=== PATIENT | female | born 1975 | race Caucasian/White ===

== ENCOUNTER 2016-11-22 05:27 | Day surgery (SDC) | payer MEDICARE ==
[2016-11-21 17:11] LABS: BASOPHILS 0.2 % (0-2); EOSINOPHILS 0 % (0-7); HEMATOCRIT 42.3 % (36.0-48.0); HEMOGLOBIN 14.2 g/dL (12-16); IMMATURE GRANULOCYTES 0.6 % (0-5); LYMPHOCYTES 23.3 % (15-50); MCH 32.2 pg (26.0-34.0); MCHC 33.6 g/dL (31.0-37.0); MCV 95.9 fL (80.0-100.0); MEAN PLATELET VOLUME 9.4 fL (7.4-10.4); MONOCYTES 5.8 % (2-11); NEUTROPHILS 70.1 % (40-80); PLATELET COUNT 299 10x3/uL (130-400); RBC 4.41 10x6/uL (4.00-5.40); RDW 13.8 % (11.5-14.5); WBC 12.6 10x3/uL (4.8-10.8)
[2016-11-21 18:15] LABS: APPEARANCE CLEAR (CLEAR); BILIRUBIN NEGATIVE (NEGATIVE); COLOR YELLOW (YELLOW); GLUCOSE NEGATIVE (NEGATIVE); KETONE NEGATIVE (NEGATIVE); LEUKOCYTE ESTERASE NEGATIVE (NEGATIVE); NITRITE NEGATIVE (NEGATIVE); PROTEIN NEGATIVE (NEGATIVE); SPECIFIC GRAVITY 1.025 (1.005-1.020); UROBILINOGEN NORMAL (NORMAL)
[2016-11-21 18:41] LABS: CALC OSMOLALITY 275 mosm/kg (275-300); CALCIUM 8.8 mg/dL (8.5-10.1); CARBON DIOXIDE 24.9 mmol/L (21.0-32.0); CHLORIDE - SERUM 104 mmol/L (98-107); CREATININE - SERUM 0.8 mg/dL (0.6-1.3); GLUCOSE 83 mg/dL (74-106); POTASSIUM - SERUM 3.7 mmol/L (3.5-5.1); SODIUM 140 mmol/L (136-145); UREA NITROGEN 7 mg/dL (7-18); eGFR NON AFRICAN AMERICAN 84 mL/min (90-120)
[~2016-11-22] VITALS: Ht 163.8 cm; Wt 77.3 kg
[~2016-11-22 05:27] MED LIST: BELSOMRA20 MG PO; CATAPRES0.1 MG PO; CONTRAVE PO; OMEPRAZOLE40 MG PO; SEROQUEL400 MG PO; VALIUM10 MG PO
[2016-11-22 10:02] VITALS: BP 106/69; BMI 28.8
--- NOTE | 2016-11-22 17:48 | NUR ---
NOTIFIED DR CRAIG OF CONTINUED PAIN AFTER EXTRA MEDICATION GIVEN PER ANESTHESIA. NEW ORDERS NOTED. IV VALIUM GIVEN, SEEMS TO BE HELPIMG.
[2016-11-22 18:10] VITALS: BP 115/73
--- NOTE | 2016-11-22 19:51 | NUR ---
RECIEVED FROM AT 181.PATIENT IS AWAKE,ALERT.AMBULATING IN ROOM AT THIS TIME. IV INTACT TO RIGHT FOREARM. INCISION TO LOWER BACK WIHTOUT DRAINAGE OR REDNESS NOTED. AT BEDSIDE,
[2016-11-22 20:00] VITALS: BP 122/70
[2016-11-23] VITALS: BP 129/72
[2016-11-23 00:29] VITALS: BP 122/76; Ht 163.8 cm; Wt 77.3 kg
--- NOTE | 2016-11-23 02:23 | NUR ---
RESTING QUIETLY. NO DISTRESS NOTED. CL IN REACH. REMAINS AT BEDSIDE.
[2016-11-23 04:00] VITALS: BP 90/49
[2016-11-23 04:07] VITALS: BP 128/72
--- NOTE | 2016-11-23 04:55 | NUR ---
UP TO BR WIHT ASSIST. VOIDING WITHOUT DIFFICULTY. NO COCMPLAINTS VOICED. CL IN REACH,. REMAINS AT BEDSIDE
[2016-11-23] MEDS ORDERED: HYDROCODON-ACE1 EAC7 PO (06:41)
[2016-11-23] MEDS ORDERED: VALIUM5 MG PO (06:41)
[2016-11-23] MEDS ORDERED: ROBAXIN-750750 MG PO (06:41)
--- NOTE | 2016-11-23 07:30 | NUR ---
RECIEVED PT DURING WALKING ROUNDS. PT RESTING COMFORTABLY IN BED WITH NO COMPLAINTS OF PAIN OR DISCOMFORT AT THIS TIME. ASSESSMENT DONE PER FLOWSHEET. BED IN LOW POSITION AND CALL LIGHT WITHIN REACH. WILL CONTINUE TO MONITOR.
[2016-11-23 07:45] VITALS: BP 90/54
--- NOTE | 2016-11-23 10:46 | NUR ---
CHEMICAL INSTRUMENTATION OFFICER DOCUMENTATION IS TOTAL SINCE INITIATION OF CHEMICAL INSTRUMENTATION OFFICER
--- NOTE | 2016-11-23 11:00 | NUR ---
IV REMOVED AND DISCHARGE INSTRUCTIONS GIVEN. PT DISCHARGED VIA WHEELCHAIR TO HOME WITH A FAMILY MEMBER.
== END 2016-11-23 11:01 | disposition home or self-care (01) ==
LOC: D.MS 05:27 → D.OPS 05:27 → D.PAN 09:45 → D.OPS 11:30 → D.PAN 11:30 → D.MS 17:50 → D.OPS 11-23 11:01
PROVIDERS: Neurological Surgery
DX: M51.16 Intervertebral disc disorders with radiculopathy, lumbar region (principal); Z01.812 Encounter for preprocedural laboratory examination

== ENCOUNTER → 2016-12-01 14:38 | Outpatient (CLI) | payer MEDICARE, OTHER ==
[2016-11-23 00:29] VITALS: BMI 28.8
[~2016-12-01 14:38] MED LIST changes: +HYDROCODON-ACE1 EAC7 PO; +ROBAXIN-750750 MG PO; +VALIUM5 MG PO
== END | disposition home or self-care (01) ==
LOC: D.MAMMO 14:38
DX: Z12.31 Encounter for screening mammogram for malignant neoplasm of breast (principal)

== ENCOUNTER → 2018-03-27 16:11 | Outpatient (CLI) | payer MEDICARE, OTHER ==
[2016-11-23 00:29] VITALS: BMI 28.8
[2018-03-27 16:54] LABS: T4 THYROXINE 3.8 ug/dL (4.7-13.3); THYROID STIMULATING HORMONE 0.74 uIU/mL (0.36-3.74)
== END | disposition home or self-care (01) ==
LOC: D.LABREF 16:11
PROVIDERS: Internal Medicine Interventional Cardiology
DX: R00.2 Palpitations (principal)

== ENCOUNTER → 2018-04-16 09:00 | Outpatient (CLI) | payer OTHER, MEDICARE ==
[2016-11-23 00:29] VITALS: BMI 28.8
--- NOTE | ~2018-04-16 | ST ---
PATIENT:ARNIE RÍOS MEDICAL RECORD: [id number] SEX: F LOCATION:[facility] ORDER #: ADMISSION DATE: 04/16/18 AGE OF PATIENT: 42 REFERRING PHYSICIAN: INTERPRETING PHYSICIAN: GRADY PHELPS MD DATE OF SERVICE: 04/16/2018 PROCEDURE: Nuclear stress test. INDICATION: Chest pain, palpitations. DESCRIPTION OF PROCEDURE: She was exercised on standard Rush protocol for 10 minutes with 33.0 mCi of sestamibi injected at peak stress, 11.0 mCi injected previously for rest images. FINDINGS: Gated SPECT reveals preserved ejection fraction at 69% with good wall motioning and thickening and brightening throughout all segments. SPECT IMAGING: Cardiolite was used as myocardial perfusion agent. There is homogeneous uptake throughout all segments at rest and stress with no evidence of inducible ischemia or previous infarction. OVERALL IMPRESSION: 1. This is a normal nuclear stress test with no evidence of inducible ischemia or previous infarction. 2. Gated SPECT reveals a preserved ejection fraction at 69%. In this patient with ongoing symptomatology, the current scan does not suggest the presence of hemodynamically significant coronary disease. Evaluate noncardiac etiology of chest pain. TRANSINT:[id number] Voice Confirmation ID: [id number] DOCUMENT ID: [id number] GRADY PHELPS MD at 1704 CC: LYIDA MURPHY [id number] DICTATION DATE: 04/17/18 1219 INTERMEDIATE FRAME TENDER: 04/17/18 1334 DEP CLI 04/16/18 [id number] [place] [address]
== END | disposition home or self-care (01) ==
LOC: D.HCCARDIO 09:00
DX: I20.9 Angina pectoris, unspecified (principal)

== ENCOUNTER 2019-10-23 16:10 | Emergency (ER) | payer OTHER, MEDICARE ==
[~2019-10-23] VITALS: Ht 163.8 cm; Wt 55.5 kg
[2019-10-23 16:20] VITALS: Ht 163.8 cm; Wt 55.5 kg
[2019-10-23] MEDS ORDERED: BISOPROLOL FUMAR5 MG PO (16:22)
[2019-10-23] MEDS ORDERED: DULCOLAX5 MG PO (16:22)
[2019-10-23] MEDS ORDERED: VALIUM10 MG PO (16:22)
[2019-10-23] MEDS ORDERED: VITAMIN D2 (16:23)
[2019-10-23] MEDS ORDERED: SEROQUEL400 MG PO (16:23)
[2019-10-23] MEDS ORDERED: VYVANSE30 MG PO (16:24)
[2019-10-23] MEDS ORDERED: AMBIEN10 MG PO (16:24)
[2019-10-23] MEDS ORDERED: ATARAX 25 MG TA25 MG PO (17:40)
[2019-10-23 19:07] VITALS: BP 101/71
== END 2019-10-23 19:07 | disposition home or self-care (01) ==
LOC: D.ER 16:10
DX: F41.9 Anxiety disorder, unspecified (principal); F43.0 Acute stress reaction; K21.9 Gastro-esophageal reflux disease without esophagitis